=== PATIENT | male | born 1960 | race Caucasian/White ===

== ENCOUNTER → 2020-04-17 11:13 | Outpatient (CLI) | payer OTHER, SELFPAY ==
--- NOTE | ~2020-04-17 | US_ITS ---
US thyroid INDICATION: Thyroid nodule TECHNIQUE: Real-time sonographic images of the thyroid gland were obtained. COMPARISON: No prior studies for comparison. FINDINGS: The right thyroid lobe measures 5.9 x 1.9 x 2 cm. The left thyroid lobe is surgically abse nt. There is a partially calcified mass in the right lobe measuring 6 5 x 5 x 4 mm, unchanged, likely benign. Isthmus is 6 mm. IMPRESSION: 1. Stable 5 mm calcified right thyroid nodule, likely benign. Reviewed, dictated and finalized at location B.
== END ==
PROVIDERS: PCP Internal Medicine; Visit Provider Internal Medicine
DX: E04.1 Nontoxic single thyroid nodule (principal)
CPT/HCPCS: 76536

== ENCOUNTER → 2022-02-19 08:03 | Outpatient (CLI) | payer MEDICARE, SELFPAY ==
--- NOTE | ~2022-02-19 | MR_ITS ---
EXAMINATION: MR lumbar spine wo con DATE: 02/19/2022 08:37 INDICATION: Scoliosis. TECHNIQUE: Magnetic resonance imaging (MRI) of the lumbar spine was performed without intravenous con trast. Sequences included sagittal T2-weighted FSE, sagittal T2-weighted FS FSE, sagittal T1-weighted FSE, and axial T2-weighted FSE. COMPARISON: Lumbar spine MRI 01/27/2017, radiographs 02/19/2022 FINDINGS: There is 15 degrees dextroscoliosis of lumbar spine. There is 3 mm retrolisthesis of L1 on L2 and L2 on L3. There is mild chronic anterior wedging of T11-L1 vertebral bodies. There is severely decreased disc at L1-L2 and L2-L3, mildly decreased disc height at L3-L4 and L4-L5, and severely dec reased disc height at L5-S1 with endplate remodeling. There is ligamentum flavum hypertrophy at the d isc levels from L1-L2 through L5-S1. The distal spinal cord signal intensity is normal. The conus med ullaris is at T12-L1. The following disc levels are specifically discussed: L1-L2: The disc is bulging and has an annular fissure. There is mild bilateral facet joint osteoarthr itis. There is mild right and moderate left neural foraminal stenosis. There is mild central canal st enosis. L2-L3: The disc is bulging. There is mild bilateral facet joint osteoarthritis. There is mild right a nd moderate left neural foraminal stenosis. There is mild central canal stenosis. L3-L4: The disc is bulging and has an annular fissure. There is moderate bilateral facet joint osteoa rthritis. There is moderate right and mild left neural foraminal stenosis. There is mild central bernardino l stenosis. L4-L5: The disc is bulging and has an annular fissure. There is moderate right and mild left facet manuel int osteoarthritis. There is mild bilateral neural foraminal stenosis. There is mild central canal st enosis. L5-S1: The disc is bulging and has an annular fissure. There is moderate bilateral facet joint osteoa rthritis. There is mild bilateral neural foraminal stenosis. There is mild central canal stenosis. IMPRESSION: 1. Severe lumbar spondylosis, worsened from 01/27/2017. 2. Lumbar dextroscoliosis. Reviewed, dictated and finalized at location A.
--- NOTE | ~2022-02-19 | XR_ITS ---
EXAMINATION: XR lumbar spine min 4V DATE: 02/19/2022 09:09 INDICATION: Scoliosis. Low back pain. TECHNIQUE: 5 views of lumbar spine standing including flexion and extension views were obtained. COMPARISON: Lumbar spine MRI 02/19/2022 FINDINGS: There is 21 degrees dextroscoliosis of lumbar spine. There is 3 mm retrolisthesis of L1 on L2 and L2 on L3. There is mild chronic anterior wedging of L1 and L2 vertebral bodies. There is no ab normal motion with flexion or extension. There is severely decreased disc height at L1-L2, L2-L3, and L5-S1 with endplate remodeling. There is mildly decreased disc height at L3-L4 and L4-L5. There is m ultilevel severe facet joint osteoarthritis. IMPRESSION: 1. Severe lumbar spondylosis. 2. Lumbar dextroscoliosis. Reviewed, dictated and finalized at location A.
== END ==
PROVIDERS: Visit Provider Nurse Practitioner Adult Health
DX: M47.816 Spondylosis without myelopathy or radiculopathy, lumbar region (principal); M41.86 Other forms of scoliosis, lumbar region
CPT/HCPCS: 72110; 72148